=== PATIENT | male | born 1975 | race Caucasian/White ===

== ENCOUNTER 2018-03-30 09:23 | Outpatient (CLI) | payer OTHER | END 2018-03-30 09:24 | disposition home or self-care (01) | LOC: DTY/OP 09:23 | PROVIDERS: ATTEND Family Medicine | DX: E11.9 Type 2 diabetes mellitus without complications (principal) | CPT/HCPCS: 97802 ==

== ENCOUNTER 2019-01-27 09:32 | Emergency (ER) | payer MEDICARE, MEDICAID ==
--- NOTE | 2019-01-27 11:59 | RAD ---
LEFT KNEE 4 VIEWS: HISTORY: Left leg pain since yesterday. FINDINGS/IMPRESSION: No fracture, dislocation, or other significant acute osseous abnormality. POS: [facility]
== END 2019-01-27 12:10 | disposition home or self-care (01) ==
LOC: ERS 09:32
DX: M25.562 Pain in left knee (principal)

== ENCOUNTER 2019-02-21 10:03 | Emergency (ER) | payer MEDICARE, MEDICAID ==
[2019-02-21] MEDS ORDERED: Ketorolac Tromethamine 60 MG/2 ML VIAL ONE (11:19)
[2019-02-21 13:26] LABS: #Lymphocytes 0.9 thou/uL (1.20-3.40); #Monocytes 0.4 thou/uL (0.11-0.59); #Neutrophils 11.2 thou/uL (1.40-6.50); %Basophils 0.3 % (0.0-1.0); %Eosinophils 0.3 % (0.0-10.0); %Monocytes 2.8 % (0.0-10.0); %Neutrophils 89.6 % (42.0-75.0); Hemoglobin 17.1 g/dL (14.0-18.0); Mean Corpuscular HGB CONC 31.1 g/dL (32.0-36.0); Mean Corpuscular Hemoglobin 28.7 pg (27.0-31.0); Mean Corpuscular Volume 92.4 fL (78.0-98.0); Mean Platelet Volume 8.7 fL (7.4-10.4); Platelet Count 205 thou/uL (130-400); RBC Distribution Width 11.6 % (11.5-14.5); Red Blood Cell (RBC) Count 5.96 mill/uL (4.70-6.10); White Blood Cell (WBC) Count 12.5 thou/uL (4.8-10.8)
[2019-02-21 13:52] LABS: ALT (SGPT) 33 U/L (8-55); AST (SGOT) 16 U/L (5-34); Albumin 5.2 g/dL (3.5-5.0); Alkaline Phosphatase 75 U/L (40-150); Anion Gap 15 mmol/L (10-20); BUN (Urea Nitrogen) 17 mg/dL (8.9-20.6); Bilirubin, Total 0.9 mg/dL (0.2-1.2); CRP (Inflammatory) 0.62 mg/dL (= or < 0.5); Calc. Creatinine Clearance 0 mL/min (70-130); Calcium 11.1 mg/dL (7.8-10.44); Carbon Dioxide 25 mmol/L (22-29); Chloride 98 mmol/L (98-107); Estimated GFR-MDRD Greater than 90; Globulin 2.9 g/dL (2.4-3.5); Glucose 163 mg/dL (70-105); Potassium 4.3 mmol/L (3.5-5.1); Protein, Total 8.1 g/dL (6.0-8.3); Sodium 134 mmol/L (136-145)
--- NOTE | 2019-02-21 14:01 | RAD ---
PELVIC RADIOGRAPHS: 02/21/19 PROVIDED CLINICAL HISTORY: Pain. FINDINGS: No evidence for fracture or other acute osseous abnormality. If there is persistent clinical concern, conservative management and follow-up imaging are advised. IMPRESSION: As above. POS: [facility]
--- NOTE | 2019-02-21 14:03 | RAD ---
THREE VIEWS LEFT HIP: 02/21/19 PROVIDED CLINICAL HISTORY: Pain. FINDINGS: No evidence for fracture or other acute osseous abnormality. If there is persistent clinical concern, conservative management and follow-up imaging are advised. IMPRESSION: As above. POS: [facility]
--- NOTE | 2019-02-21 14:07 | RAD ---
LEFT LEG TWO VIEWS: HISTORY: Left leg pain. Left knee pain. FINDINGS: The left tibia and fibula are intact. POS: [facility]
== END 2019-02-21 17:03 ==
LOC: ERS 10:03
DX: M25.562 Pain in left knee (principal)
CPT/HCPCS: 36415; 72170; 80053; 85025; 85652; 86140; 96372; J1885

== ENCOUNTER 2019-06-08 11:38 | Outpatient (CLI) | payer MEDICARE, MEDICAID ==
--- NOTE | 2019-06-08 14:31 | MRI ---
MRI LEFT KNEE: 06/08/2019 PROVIDED CLINICAL HISTORY: Knee pain status post injury. FINDINGS: Evaluation is limited by patient motion. The anterior cruciate ligament, posterior cruciate ligament, medial collateral ligament and lateral c ollateral ligament complex demonstrate an intact MR appearance, as does the extensor mechanism. The medial and lateral menisci demonstrate no evidence for tear. There is a displaced osteochondral fracture involving the junction of the lateral facet and central a spects of the femoral trochlea. There is a probable loose in situ chondral fragment measuring at leas t 12 mm in transverse dimension and 15 mm in craniocaudal dimension. There is a displaced osteochondr al/chondral fragment at the posterior aspect of the knee joint medially, adjacent to the root of the medial meniscus. This fragment measures at least 12 mm in craniocaudal dimension and at least 8 mm in transverse dimension. Articular cartilage appears without additional focal defect. There is signal inhomogeneity involving the central lateral tibial plateau articular cartilage with subjacent marrow edema. There is a physiologic amount of fluid within the knee joint. Regional marrow and muscular signal shola ear otherwise normal. IMPRESSION: 1. Displaced osteochondral fracture involving the femoral trochlea, as described. 2. 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 POS: [facility]
== END 2019-06-08 11:39 | disposition home or self-care (01) ==
LOC: MRI 11:38
PROVIDERS: ATTEND Family Medicine
DX: S89.92XD Unspecified injury of left lower leg, subsequent encounter (principal); M24.562 Contracture, left knee; M62.89 Other specified disorders of muscle; S72.102A Unspecified trochanteric fracture of left femur, initial encounter for closed fracture; R60.0 Localized edema

== ENCOUNTER 2019-07-06 06:31 | Outpatient (CLI) | payer MEDICARE, MEDICAID ==
[2019-07-06 11:44] LABS: #Basophils 0.1 thou/uL (0.0-0.2); #Eosinphils 0.1 thou/uL (0.0-0.7); #Lymphocytes 1.4 thou/uL (1.20-3.40); #Monocytes 0.4 thou/uL (0.11-0.59); #Neutrophils 5.7 thou/uL (1.40-6.50); %Basophils 0.8 % (0.0-1.0); %Eosinophils 1.3 % (0.0-10.0); %Monocytes 5.5 % (0.0-10.0); %Neutrophils 74.4 % (42.0-75.0); Hemoglobin 16.4 g/dL (14.0-18.0); Mean Corpuscular HGB CONC 33.4 g/dL (32.0-36.0); Mean Corpuscular Hemoglobin 30.7 pg (27.0-31.0); Mean Corpuscular Volume 91.9 fL (78.0-98.0); Mean Platelet Volume 9.2 fL (7.4-10.4); Platelet Count 172 thou/uL (130-400); RBC Distribution Width 11.2 % (11.5-14.5); Red Blood Cell (RBC) Count 5.35 mill/uL (4.70-6.10); White Blood Cell (WBC) Count 7.7 thou/uL (4.8-10.8)
[2019-07-06 12:01] LABS: Anion Gap 12 mmol/L (10-20); BUN (Urea Nitrogen) 18 mg/dL (8.9-20.6); Calc. Creatinine Clearance 0 mL/min (70-130); Calcium 9.8 mg/dL (7.8-10.44); Carbon Dioxide 24 mmol/L (22-29); Chloride 105 mmol/L (98-107); Estimated GFR-MDRD Greater than 90; Glucose 243 mg/dL (70-105); Sodium 137 mmol/L (136-145)
--- NOTE | 2019-07-06 16:52 | EKG ---
Test Reason : Blood Pressure : / mmHG Vent. Rate : 086 BPM Atrial Rate : 086 BPM P-R Int : 124 ms QRS Dur : 100 ms QT Int : 358 ms P-R-T Axes : 045 050 052 degrees QTc Int : 428 ms Normal sinus rhythm Non-specific intra-ventricular conduction delay Abnormal ECG Confirmed by MIRZA JOHNSON ([id number]) on 07/06/2019 4:52:28 PM Referred By: IERO Confirmed By:MIRZA JOHNSON
== END 2019-07-06 06:32 | disposition home or self-care (01) ==
LOC: LABBT 06:31
PROVIDERS: ATTEND Orthopaedic Surgery
DX: Z01.818 Encounter for other preprocedural examination (principal); M95.8 Other specified acquired deformities of musculoskeletal system
CPT/HCPCS: 80048; 85025; 93005; 93010

== ENCOUNTER 2019-07-19 08:33 | Day surgery (SDC) | payer MEDICARE, MEDICAID ==
[2019-07-06 10:34] VITALS: BMI 27.0
[2019-07-19] MEDS ORDERED: PROPOFOL 200 MG/20 ML VIAL ONE (10:07)
[2019-07-19] MEDS ORDERED: Lidocaine 2% w/Epinephrine 1:200K 20 ML VIAL ONE (10:10)
[2019-07-19] MEDS ORDERED: Bupivacaine HCl 0.5%/Epinephrine 1:200,000/PF 30 ml Vial ONE (10:10)
[2019-07-19] MEDS ORDERED: PROPOFOL 20 ML ONE (10:18)
[2019-07-19] MEDS ORDERED: Fentanyl 100 MCG/2 ML VIAL ONE ×2 (10:55→11:03)
--- NOTE | 2019-07-20 14:34 | OP ---
DATE OF PROCEDURE: 07/19/2019 POSTOPERATIVE DIAGNOSIS: Left knee loose bodies secondary to grade 4 lesion, leading edge of the trochlea. POSTOPERATIVE DIAGNOSIS: Left knee loose bodies secondary to grade 4 lesion, leading edge of the trochlea. PROCEDURES PERFORMED: 1. Left knee arthroscopy with debridement and shaving of unstable chondral flaps, trochlea. 2. Removal of two large cartilaginous loose body, both of them greater than 1 cm in length. EDGE PLUGGER: None. ANESTHESIA: He had general anesthetic as well as a local knee block. COMPLICATIONS: There were no complications. DISPOSITION: He went to recovery room in stable condition. INDICATIONS: A 43-year-old male with complaint of pain and locking in the knee. It was found that he had a grade 4 lesion on his trochlea with some loose chondral flaps as well as some loose bodies in the knee. At this time, he opted for surgery. DESCRIPTION OF PROCEDURE: After all appropriate consent forms were explained and signed by his father. He was taken the operating room and at this time was given general anesthetic. Once the level of anesthesia was appropriate, tourniquet was placed on the left thigh. Leg was placed in an arthroscopic leg michaels. The limb was then prepped and draped in standard surgical fashion. The limb was exsanguinated and tourniquet was taken up to 300 mmHg. Inferolateral portal was established. Scope was placed into the knee joint. A needle localization technique was then used to make a medial working portal. Diagnostic arthroscopy commenced in the notch. The ACL and PCL were probed, found to be intact. The medial compartment was intact. Lateral compartment was intact. We went through the gutters and there was a large piece of cartilage, it was approximately a centimeter in width and 0.5 cm in length, which was in the lateral gutter, was removed with the grasper. Patellofemoral joint was evaluated and the patella was found to be in good condition; however, the trochlea had a grade 4 lesion with some unstable chondral flaps. This was debrided with a shaver to a stable base. There were no other loose bodies noted in the suprapatellar pouch on the medial and lateral gutters. I decided to look posteriorly between the PCL and the medial femoral condyle and I did find another large cartilaginous loose bodies of the trochlea. We then able to tease this forward by pushing posteriorly on the capsule and used a grasper to reach in between the PCL and the condyle and pulled this out. Once this was done, we looked around the knee one more time, did not see any more remaining loose bodies. I then removed the camera and drained the knee and closed these portals with simple nylon stitch. Bulky sterile dressing was applied. Tourniquet was let down. Toes pinked up nicely. The patient was awakened and taken to recovery room in stable condition. All counts were correct at the end of the case and he did receive preoperative IV antibiotics. Job ID: [id number]
== END 2019-07-19 15:10 | disposition home or self-care (01) ==
LOC: SDC 08:33
PROVIDERS: ATTEND Orthopaedic Surgery
PROC: 0SBD4ZZ Excision of Left Knee Joint, Percutaneous Endoscopic Approach (ICD-10-PCS; principal; 2019-07-19)
PROC: 0SCD4ZZ Extirpation of Matter from Left Knee Joint, Percutaneous Endoscopic Approach (ICD-10-PCS; 2019-07-19)
DX: M23.8X2 Other internal derangements of left knee (principal); M23.42 Loose body in knee, left knee; E11.9 Type 2 diabetes mellitus without complications; Z79.84 Long term (current) use of oral hypoglycemic drugs; Z79.899 Other long term (current) drug therapy; Z88.2 Allergy status to sulfonamides; W01.0XXA Fall on same level from slipping, tripping and stumbling without subsequent striking against object, initial encounter; Y93.67 Activity, basketball
CPT/HCPCS: J0670; J0690; J2704; J3010

== ENCOUNTER 2021-01-17 12:21 | Emergency (ER) | payer MEDICARE, MEDICAID ==
[2021-01-17] MEDS ORDERED: diphenhydrAMINE 25 MG CAP ONE (12:48)
[2021-01-17] MEDS ORDERED: Ibuprofen 200 MG TAB ONE (12:48)
== END 2021-01-17 12:50 | disposition home or self-care (01) ==
LOC: ERS 12:21
DX: T63.441A Toxic effect of venom of bees, accidental (unintentional), initial encounter (principal)
CPT/HCPCS: 99282; Q0163

== ENCOUNTER 2021-09-02 14:14 | Outpatient (CLI) | payer MEDICARE, MEDICAID | END 2021-09-02 14:15 | disposition home or self-care (01) | LOC: BICRAD 14:14 | PROVIDERS: ATTEND Nurse Practitioner Family | DX: M25.561 Pain in right knee (principal) ==

== ENCOUNTER 2023-10-31 20:22 | Emergency (ER) | payer MEDICARE, MEDICAID | END 2023-10-31 21:45 | disposition home or self-care (01) | LOC: ERS 20:22 | DX: T46.6X1A Poisoning by antihyperlipidemic and antiarteriosclerotic drugs, accidental (unintentional), initial encounter (principal); I10 Essential (primary) hypertension; E11.9 Type 2 diabetes mellitus without complications | CPT/HCPCS: 99283 ==

== ENCOUNTER 2023-11-01 12:15 | Emergency (ER) | payer MEDICARE, MEDICAID | END 2023-11-01 13:58 | disposition home or self-care (01) | LOC: ERS 12:15 | DX: R19.7 Diarrhea, unspecified (principal); I10 Essential (primary) hypertension; E11.9 Type 2 diabetes mellitus without complications; Q99.2 Fragile X chromosome; Z55.6 Problems related to health literacy | CPT/HCPCS: 99283 ==

== ENCOUNTER 2024-05-24 10:37 | Emergency (ER) | payer MEDICARE, MEDICAID ==
[2024-05-24 11:31] LABS: #Basophils 0.05 10x3/uL (0.0-0.2); %Basophils 0.7 % (0.0-1.0); %Eosinophils 1.1 % (0.0-10.0); %Lymphocytes 18.5 % (21.0-51.0); %Monocytes 6.1 % (0.0-10.0); %Neutrophils 72.9 % (42.0-75.0); Hematocrit 47.1 % (42.0-52.0); Hemoglobin 15.8 g/dL (14.0-18.0); Mean Corpuscular HGB CONC 33.5 g/dL (32.0-36.0); Mean Corpuscular Hemoglobin 30.6 pg (27.0-31.0); Mean Corpuscular Volume 91.3 fL (78.0-98.0); Mean Platelet Volume 10.4 fL (7.4-10.4); Platelet Count 171 10x3/uL (130-400); RBC Distribution Width 11.7 % (11.5-14.5); Red Blood Cell (RBC) Count 5.16 mill/uL (4.70-6.10)
[2024-05-24 11:48] LABS: ALT (SGPT) 12 U/L (8-55); AST (SGOT) 13 U/L (5-34); Albumin 4.3 g/dL (3.5-5.0); Alkaline Phosphatase 71 U/L (40-110); Anion Gap 14 mmol/L (10-20); BUN (Urea Nitrogen) 13 mg/dL (8.9-20.6); Bilirubin, Total 0.8 mg/dL (0.2-1.2); Calc. Creatinine Clearance 0 mL/min (70-130); Calcium 9.3 mg/dL (7.8-10.44); Carbon Dioxide 23 mmol/L (22-29); Chloride 103 mmol/L (98-107); Estimated GFR 111; Globulin 2.5 g/dL (2.4-3.5); Glucose 233 mg/dL (70-105); Lipase 41 U/L (8-78); Protein, Total 6.8 g/dL (6.0-8.3); Sodium 136 mmol/L (136-145)
== END 2024-05-24 13:51 | disposition home or self-care (01) ==
LOC: ERS 10:37
DX: K92.2 Gastrointestinal hemorrhage, unspecified (principal); I10 Essential (primary) hypertension; E11.9 Type 2 diabetes mellitus without complications; F84.0 Autistic disorder
CPT/HCPCS: 80053; 83690; 85025; 99284